=== PATIENT | female | born 1985 | race Caucasian/White ===

== ENCOUNTER 2018-01-28 19:03 | Emergency (ER) | payer MEDICAID ==
[2018-01-28] MEDS ORDERED: ASPI81TA94 PO (19:12)
[2018-01-28] MEDS ORDERED: PREN-127 PO (19:12)
--- NOTE | 2018-01-28 19:19 | ER Report ---
History and Physical Time Seen By MD: 19:19 Hx. of Stated Complaint: PT WAS SEEN AT THE EYE DOCTOR, LEAKING SPINAL FLUID BEHIND LEFT EYE. HAS AN APPOINTMENT WITH A SPECIALIST OR MON. CURRENTLY VERY DIZZY, NAUSEATED, CAN'T EAT ANYTHING HPI/ROS CHIEF COMPLAINT: Headache, dizziness HISTORY OF PRESENT ILLNESS: 32-year-old female patient presents to emergency room with complaint of headache and dizziness. Patient states that she has had a headache and are minimally for several weeks. She states that she was seen at a optometrists office. They did look at her and felt that she could very well have idiopathic intracranial hypertension. As a result of that they wanted her to follow-up with the [facility] for more definitive workup. They wanted her to that prior to seeing a neurologist. Patient states that she has been playing phone tag with the [facility] has not been ill make an appointment for sooner. She does have an appointment for or Monday this coming week. She states that the pain has gotten worse over the weekend. She denies any visual changes, she denies any loss of vision in her eye. She states that she has not been able keep anything down she's been nauseated. She denies having any fevers, chills. REVIEW OF SYSTEMS: Respiratory: No cough, no dyspnea. Cardiovascular: No chest pain, no palpitations. Gastrointestinal: As noted above Musculoskeletal: No back pain. Allergies: Coded Allergies: No Known Drug Allergies (Unverified , 01/28/18) Home Meds Active Scripts Nitrofurantoin Monohyd/M-Cryst (MACROBID 100 MG CAPSULE) 100 Mg Capsule, 100 MG PO BID, #14 CAPSULE Prov:ALMAZ COBURNP 01/28/18 Promethazine Hcl (PROMETHAZINE HCL) 25 Mg Tablet, 25 MG PO Q8H PRN for NAUSEA/VOMITING, #12 TAB Prov:ALMAZ COBURN 01/28/18 Hydrocodone Bit/Acetaminophen (HYDROCODON-ACETAMINOPHEN 5-325) 1 Each Tablet, 1 EACH PO Q4-6H PRN for PAIN, #12 TAB Prov:ALMAZ COBURNP 01/28/18 Reported Medications Aspirin (ASPIRIN) 81 Mg Tab.chew, 81 MG PO QDAY, TAB.CHEW 01/28/18 Vits W-Ca,Fe,Fa(<1MG) ( VITAMINS) 1 Each Tablet, 1 EACH PO DAILY, TAB 01/28/18 Past Medical/Surgical History Patient has a past medical history of migraines, hypertension, neck and shoulder problems, diabetes, marijuana, anxiety, depression. Patient has surgical history of tonsillectomy. Reviewed Nurses Notes: Yes Hx Substance Use Disorder: Yes (MARIJUANA) Hx Alcohol Use: No Constitutional Vital Sign - Last 24 Hours 01/28/18 19:08 Temp 97.4 Pulse 82 Resp 26 B/P (MAP) 130/118 Pulse Ox 98 O2 Delivery Room Air Physical Exam General Appearance: The patient is alert, has no immediate need for airway protection and no current signs of toxicity. Eyes: Pupils equal and round no injection. Extraocular movements intact. Respiratory: Chest is non tender, lungs are clear to auscultation. Cardiac: regular rate and rhythm Gastrointestinal: Abdomen is soft and non tender, no masses, bowel sounds normal. Musculoskeletal: Neck: Neck is supple and non tender. Extremities have full range of motion and are non tender. Skin: No rashes or lesions. DIFFERENTIAL DIAGNOSIS: After history and physical exam differential diagnosis was considered for headache including but not limited to subarachnoid hemorrhage, migraine headache, tension headache and infectious causes such as meningitis, pharyngitis and sinusitis. Included in the differential is idiopathic intracranial hypertension. Medical Decision Making Data Points Result Diagram: 01/28/18195101/28/181951 Laboratory Hematology Test 01/28/18 19:52 01/28/18 20:30 Red Blood Count 5.88 M/uL (4.17-5.56) Mean Corpuscular Volume 79.3 fL (80.0-96.0) Mean Corpuscular Hemoglobin 26.8 pg (26.0-33.0) Mean Corpuscular Hemoglobin Concent 33.8 g/dL (32.0-36.0) Red Cell Distribution Width 14.2 % (11.5-14.5) Mean Platelet Volume 7.1 fL (7.2-11.1) Neutrophils (%) (Auto) 71.2 % (39.4-72.5) Lymphocytes (%) (Auto) 21.1 % (17.6-49.6) Monocytes (%) (Auto) 6.4 % (4.1-12.4) Eosinophils (%) (Auto) 0.8 % (0.4-6.7) Basophils (%) (Auto) 0.5 % (0.3-1.4) Nucleated RBC Relative Count (auto) 0.0 /100WBC Neutrophils # (Auto) 8.7 K/uL (2.0-7.4) Lymphocytes # (Auto) 2.6 K/uL (1.3-3.6) Monocytes # (Auto) 0.8 K/uL (0.3-1.0) Eosinophils # (Auto) 0.1 K/uL (0.0-0.5) Basophils # (Auto) 0.1 K/uL (0.0-0.1) Nucleated RBC Absolute Count (auto) 0.00 K/uL Sodium Level 143 mmol/L (137-145) Potassium Level 3.6 mmol/L (3.5-5.0) Chloride Level 102 mmol/L (98-107) Carbon Dioxide Level 30 mmol/L (22-31) Blood Urea Nitrogen 13 mg/dl (7-18) Creatinine 0.70 mg/dl (0.52-1.04) Glomerular Filtration Rate Calc > 60.0 Random Glucose 110 mg/dl (75-110) Calcium Level 9.8 mg/dl (8.4-10.2) Total Bilirubin 0.5 mg/dl (0.2-1.3) Aspartate Amino Transf (AST/SGOT) 22 U/L (0-35) Alanine Aminotransferase (ALT/SGPT) 36 U/L (0-56) Alkaline Phosphatase 103 U/L (0-126) Total Protein 7.9 g/dl (6.3-8.2) Albumin 4.3 g/dl (3.5-5.0) Human Chorionic Gonadotropin, Qual Negative (NEGATIVE) Urine Color Yellow Urine Clarity Cloudy Urine pH 7.0 pH (4.8-9.5) Urine Specific Whitney 1.025 Urine Protein 30 mg/dL (NEGATIVE) Urine Glucose (UA) Negative mg/dL (NEGATIVE) Urine Ketones 80 mg/dL (NEGATIVE) Urine Blood Negative (NEGATIVE) Urine Nitrite Negative (NEGATIVE) Urine Bilirubin Negative (NEGATIVE) Urine Urobilinogen Negative mg/dL (0.2-1.9) Urine Leukocyte Esterase Small (NEGATIVE) Urine RBC 2 /HPF (0-2/HPF) Urine WBC 22 /HPF (0-5/HPF) Urine Squamous Epithelial Cells Many /LPF (</=FEW) Urine Transitional Epithelial Cells Few /LPF (NONE-FEW) Urine Bacteria Negative /HPF (NONE-FEW) Urine Hyaline Casts Many /LPF (NONE-FEW) Urine Mucus Few /HPF (NONE-FEW) Chemistry Test 01/28/18 19:52 01/28/18 20:30 White Blood Count 12.3 k/uL (4.5-11.0) Red Blood Count 5.88 M/uL (4.17-5.56) Hemoglobin 15.8 g/dL (12.0-16.0) Hematocrit 46.6 % (34.0-47.0) Mean Corpuscular Volume 79.3 fL (80.0-96.0) Mean Corpuscular Hemoglobin 26.8 pg (26.0-33.0) Mean Corpuscular Hemoglobin Concent 33.8 g/dL (32.0-36.0) Red Cell Distribution Width 14.2 % (11.5-14.5) Platelet Count 425 K/uL (150-450) Mean Platelet Volume 7.1 fL (7.2-11.1) Neutrophils (%) (Auto) 71.2 % (39.4-72.5) Lymphocytes (%) (Auto) 21.1 % (17.6-49.6) Monocytes (%) (Auto) 6.4 % (4.1-12.4) Eosinophils (%) (Auto) 0.8 % (0.4-6.7) Basophils (%) (Auto) 0.5 % (0.3-1.4) Nucleated RBC Relative Count (auto) 0.0 /100WBC Neutrophils # (Auto) 8.7 K/uL (2.0-7.4) Lymphocytes # (Auto) 2.6 K/uL (1.3-3.6) Monocytes # (Auto) 0.8 K/uL (0.3-1.0) Eosinophils # (Auto) 0.1 K/uL (0.0-0.5) Basophils # (Auto) 0.1 K/uL (0.0-0.1) Nucleated RBC Absolute Count (auto) 0.00 K/uL Glomerular Filtration Rate Calc > 60.0 Calcium Level 9.8 mg/dl (8.4-10.2) Total Bilirubin 0.5 mg/dl (0.2-1.3) Aspartate Amino Transf (AST/SGOT) 22 U/L (0-35) Alanine Aminotransferase (ALT/SGPT) 36 U/L (0-56) Alkaline Phosphatase 103 U/L (0-126) Total Protein 7.9 g/dl (6.3-8.2) Albumin 4.3 g/dl (3.5-5.0) Human Chorionic Gonadotropin, Qual Negative (NEGATIVE) Urine Color Yellow Urine Clarity Cloudy Urine pH 7.0 pH (4.8-9.5) Urine Specific Whitney 1.025 Urine Protein 30 mg/dL (NEGATIVE) Urine Glucose (UA) Negative mg/dL (NEGATIVE) Urine Ketones 80 mg/dL (NEGATIVE) Urine Blood Negative (NEGATIVE) Urine Nitrite Negative (NEGATIVE) Urine Bilirubin Negative (NEGATIVE) Urine Urobilinogen Negative mg/dL (0.2-1.9) Urine Leukocyte Esterase Small (NEGATIVE) Urine RBC 2 /HPF (0-2/HPF) Urine WBC 22 /HPF (0-5/HPF) Urine Squamous Epithelial Cells Many /LPF (</=FEW) Urine Transitional Epithelial Cells Few /LPF (NONE-FEW) Urine Bacteria Negative /HPF (NONE-FEW) Urine Hyaline Casts Many /LPF (NONE-FEW) Urine Mucus Few /HPF (NONE-FEW) Urinalysis Test 01/28/18 20:30 Urine Color Yellow Urine Clarity Cloudy Urine pH 7.0 pH (4.8-9.5) Urine Specific Whitney 1.025 Urine Protein 30 mg/dL (NEGATIVE) Urine Glucose (UA) Negative mg/dL (NEGATIVE) Urine Ketones 80 mg/dL (NEGATIVE) Urine Blood Negative (NEGATIVE) Urine Nitrite Negative (NEGATIVE) Urine Bilirubin Negative (NEGATIVE) Urine Urobilinogen Negative mg/dL (0.2-1.9) Urine Leukocyte Esterase Small (NEGATIVE) Urine RBC 2 /HPF (0-2/HPF) Urine WBC 22 /HPF (0-5/HPF) Urine Squamous Epithelial Cells Many /LPF (</=FEW) Urine Transitional Epithelial Cells Few /LPF (NONE-FEW) Urine Bacteria Negative /HPF (NONE-FEW) Urine Hyaline Casts Many /LPF (NONE-FEW) Urine Mucus Few /HPF (NONE-FEW) EKG/Imaging EKG Interpretation 12 lead EKG: Rhythm: normal sinus rhythm [place]: normal QRS: normal ST segments: normal Imaging CT Head without contrast Indication: Headache. Comparison: None available Technique: Axial CT images were obtained through the brain from the skull base to the vertex without administration of IV contrast. Reformatted coronal and sa gittal images were also obtained. One of the following dose optimization techniques was utilized in the performance of this exam: automated exposure control; adjustment of the mA and/or kV according to the patient's size; or use of an iterative reconstruction technique. Specific details can be referenced in the facility's radiology CT exam operational policy. Findings: No evidence of mass, mass effect, or midline shift. No acute intracranial hemorrhage or acute territorial infarction. No extra-axial fluid collection or hydrocephalus. No abnormal density. Benitez/white matter differentiation appears normal. Bony structures show no fractures or lesions. The visualized paranasal sinuses and mastoid air cells are clear. IMPRESSION: 1. Negative unenhanced CT of the head. Report Dictated By: Elijah Hinojosa at 01/28/2018 8:51 PM Report E-Signed By: Elijah Hinojosa at 01/28/2018 8:56 PM ED Course/Re-evaluation ED Course Patient was admitted on exam room, history and physical were obtained. Differential diagnoses were considered. On examination lungs are clear, heart is regular, abdomen is soft and nontender. Extraocular movements were intact. A CBC, CMP, urinalysis done. Patient had an elevated white count of 12,000, no left shift. CMP was unremarkable. The urinalysis did show moderate leukocyte esterase with 22 white blood cells per high power field. CT scan of the head was done which showed no acute findings. I discussed findings with patient and her family. I would patient does need to follow-up with the [facility] ([place], [place]) for a more appropriate look for possible idiopathic intracranial hypertension. In the meantime we will treat her with a limited supply of pain medication as well as nausea medication. She is return to the emergency room if condition worsens. She is to follow-up with her primary care provider in the next 2-3 weeks. I discussed the patient and her and they verbalized understanding and agreement with plan. Decision to Disposition Date: Jan 28, 2018 Decision to Disposition Time: 21:02 Depart Departure Latest Vital Signs Vital Signs Date Time Temp Pulse Resp B/P (MAP) Pulse Ox O2 Delivery O2 Flow Rate FiO2 9/30/18 19:08 97.4 82 26 130/118 98 Room Air Impression: Primary Impression: Headache Additional Impression: UTI (urinary tract infection) Condition: Improved Disposition: HOME OR SELF-CARE New Scripts Nitrofurantoin Monohyd/M-Cryst (MACROBID 100 MG CAPSULE) 100 Mg Capsule 100 MG PO BID, #14 CAPSULE Prov: ALMAZ COBURNP 01/28/18 Promethazine Hcl (PROMETHAZINE HCL) 25 Mg Tablet 25 MG PO Q8H PRN for NAUSEA/VOMITING, #12 TAB Prov: ALMAZ COBURN 01/28/18 Hydrocodone Bit/Acetaminophen (HYDROCODON-ACETAMINOPHEN 5-325) 1 Each Tablet 1 EACH PO Q4-6H PRN for PAIN, #12 TAB Prov: ALMAZ COBURN 01/28/18 Patient Instructions: Urinary Tract Infection in Women (ED) Additional Instructions: Increase fluid intake. Get plenty of rest. Follow up with your software testing specialist ([facility]) this next week. Limit activity by pain. Return to the ER if condition worsens. Follow up with your primary care provider in the next 1-2 weeks. Problem Qualifiers Primary Impression: Headache Headache type: unspecified Headache chronicity pattern: acute headache Intractability: not intractable Qualified Codes: R51 - Headache Additional Impression: UTI (urinary tract infection) Urinary tract infection type: acute cystitis Hematuria presence: without hematuria Qualified Codes: N30.00 - Acute cystitis without hematuria ALMAZ COBURN Jan 28, 2018 19:19
[2018-01-28] MEDS ORDERED: NS(*) 0.9% 1000 ML BAG 1,000 ML IV ONE (19:27)
[2018-01-28] MEDS ORDERED: ONDANSETRON 4 MG/2 ML VIAL IVP ONE ×2 (19:30→21:00)
[2018-01-28] MEDS ORDERED: MORPHINE 4 MG/ML SDV IVP ONE (19:30)
[2018-01-28 20:03] LABS: PLATELET COUNT, AUTOMATED 425 K/uL (150-450)
--- NOTE | 2018-01-28 20:59 | RADIOLOGY IMAGING REPORT ---
FACILITY: [facility] [place] PATIENT NAME: Agnes Carballo : 1985 MR: [id number] V: [id number] EXAM DATE: ORDERING PHYSICIAN: ALMAZ COBURN TECHNOLOGIST: Location: [facility] Patient: Agnes Carballo : 1985 Visit/Account:[id number] Date of Sevice: 01/28/2018 CT Head without contrast Indication: Headache. Comparison: None available Technique: Axial CT images were obtained through the brain from the skull base to the vertex without administration of IV contrast. Reformatted coronal and sagittal images were also obtained. One of the following dose optimization techniques was utilized in the performance of this exam: autom ated exposure control; adjustment of the mA and/or kV according to the patient's size; or use of an i terative reconstruction technique. Specific details can be referenced in the facility's radiology CT exam operational policy. Findings: No evidence of mass, mass effect, or midline shift. No acute intracranial hemorrhage or acute territorial infarction. No extra-axial fluid collection or hydrocephalus. No abnormal density. Benitez/white matter differentiat ion appears normal. Bony structures show no fractures or lesions. The visualized paranasal sinuses and mastoid air cells are clear. IMPRESSION: 1. Negative unenhanced CT of the head. Report Dictated By: Elijah Hinojosa at 01/28/2018 8:51 PM Report E-Signed By: Elijah Hinojosa at 01/28/2018 8:56 PM WSN:[id number]
[2018-01-28] MEDS ORDERED: HYDR-385 PO (21:03)
[2018-01-28] MEDS ORDERED: PROM-110 PO (21:03)
[2018-01-28] MEDS ORDERED: NITR-105 PO (21:05)
[2018-01-28] MEDS ORDERED: PROMETHAZINE HCL 25 MG TAB TH 2 TAB/BOTTLE PO ONE (21:10)
[2018-01-28] MEDS ORDERED: ACET/HYDROC 5/325MG TH ER ONLY 2 TAB/BOTTLE PO ONE (21:10)
[2018-01-28 21:16] VITALS: BP 103/77
--- NOTE | 2018-01-28 21:30 | EKG ---
FACILITY: [facility] [place] PATIENT NAME: SOFYA FINK : [id number] MR: [id number] V: [id number] EXAM DATE: ORDERING PHYSICIAN: ALMAZ COBURN TECHNOLOGIST: MAINOR Test Reason : DIZZINESS Blood Pressure : / mmHG Vent. Rate : 068 BPM Atrial Rate : 068 BPM P-R Int : 158 ms QRS Dur : 084 ms QT Int : 392 ms P-R-T Axes : 025 031 041 degrees QTc Int : 416 ms Normal sinus rhythm Low voltage QRS No ST-T abnormalities Confirmed by CHANDNI MORAN ([id number]) on 01/29/2018 2:50:48 PM Referred By: ALMAZ Confirmed By:CHANDNI MORAN
== END 2018-01-28 21:10 | disposition home or self-care (01) ==
LOC: ER 19:19
DX: R51 Headache (principal); N30.00 Acute cystitis without hematuria
CPT/HCPCS: 70450; 81001; 84703; 85025; 87077; 87088; 87186; 93005; 96361; 96374; 96375; 96376; 99284; J2270; J2405; J7030; 82040; 82247; 82310; 82374; 82435; 82565; 82947; 84075; 84132; 84155; 84295; 84450; 84460; 84520

== ENCOUNTER 2018-02-03 11:14 | Emergency (ER) | payer MEDICAID ==
[~2018-02-03 11:14] MED LIST: ASPI81TA94 PO; HYDR-385 PO; NITR-105 PO; PREN-127 PO; PROM-110 PO
--- NOTE | 2018-02-03 11:21 | ER Report ---
History and Physical Time Seen By MD: 11:18 Hx. of Stated Complaint: PATIENT REPORTS THAT SHE HAS EDEMA BEHIND HER LEFT EYE. SHE IS BEING SEEN BY [facility] FOR THIS. TODAY SHE REPORTS INCREASED SWELLING AND PAIN. HPI/ROS CHIEF COMPLAINT: Migraine and eye pressure HISTORY OF PRESENT ILLNESS: This is a 32-year-old female who presents to the emergency department for a migraine type headache with pressure behind her left eye. The patient was seen and evaluated here last month for a migraine headache and dizziness, had a CT scan which was negative. Patient has since then followed up with the eye center of [facility] for follow-up with the left eye pressure. Patient states that there are evaluating her for papilledema secondary to her diabetes and hypertension. Patient states that she's had this increased pressure behind her left eye for some time progressively getting worse they were considering an MRI. Patient states that today she woke up with blurred vision in the left eye with increased pressure behind her left eye as well. She has na usea, no vomiting. No diarrhea. No chest pain or shortness breath. No fevers. REVIEW OF SYSTEMS: Constitutional: No fever, no chills. Eyes: As above. ENT: No sore throat. Cardiovascular: No chest pain, no palpitations. Respiratory: No cough, no shortness of breath. Gastrointestinal: No abdominal pain, no vomiting. Genitourinary: No hematuria. Musculoskeletal: No back pain. Skin: No rashes. Neurological: As above. Allergies: Coded Allergies: No Known Drug Allergies (Unverified , 01/28/18) Home Meds Active Scripts Nitrofurantoin Monohyd/M-Cryst (MACROBID 100 MG CAPSULE) 100 Mg Capsule, 100 MG PO BID, #14 CAPSULE Prov:ALMAZ COBURNP 01/28/18 Promethazine Hcl (PROMETHAZINE HCL) 25 Mg Tablet, 25 MG PO Q8H PRN for NAUSEA/VOMITING, #12 TAB Prov:ALMAZ COBURN 01/28/18 Hydrocodone Bit/Acetaminophen (HYDROCODON-ACETAMINOPHEN 5-325) 1 Each Tablet, 1 EACH PO Q4-6H PRN for PAIN, #12 TAB Prov:ALMAZ COBURN [facility] 01/28/18 Reported Medications Aspirin (ASPIRIN) 81 Mg Tab.chew, 81 MG PO QDAY, TAB.CHEW 01/28/18 Vits W-Ca,Fe,Fa(<1MG) ( VITAMINS) 1 Each Tablet, 1 EACH PO DAILY, TAB 01/28/18 Past Medical/Surgical History The patient has a past medical and surgical history of migraines, hypertension, uncontrolled, neck and shoulder discomfort, is supposed to wear glasses, uncontrolled diabetes, uses marijuana, anxiety, depression, tonsillectomy. Reviewed Nurses Notes: Yes Hx Substance Use Disorder: Yes (MARIJUANA) Hx Alcohol Use: No Constitutional Vital Sign - Last 24 Hours 02/03/18 02/03/18 02/03/18 02/03/18 11:17 14:48 14:50 15:41 Pulse 76 73 76 Resp 20 B/P (MAP) 128/93 118/81 (93) 126/97 (107) Pulse Ox 96 96 94 O2 Delivery Room Air Physical Exam General Appearance: The patient is alert, has no immediate need for airway protection and no signs of toxicity. Eyes: Pupils equal and round no pallor or injection. EOMs intact, no nystagmus. OS 20/40, OD 20/50, OU 20/40. Pressure in both eyes 12.2. Unable to visualize the fundus during exam, patient not tolerating. ENT, Mouth: Mucous membranes are moist. Respiratory: There are no retractions, lungs are clear to auscultation. Cardiovascular: Regular rate and rhythm, distant, no murmurs, clicks or rubs. Gastrointestinal: Abdomen is soft and non tender, no masses, bowel sounds normal. Neurological: Alert and oriented 4. Moving all extremities. Following all commands. No focal neuro deficits. Skin: Warm and dry, no rashes. Musculoskeletal: Neck is supple non tender. Extremities are nontender, nonswollen and have full range of motion. DIFFERENTIAL DIAGNOSIS: After history and physical exam differential diagnosis was considered for MS, tumor, diabetic papillitis, papilledema and atypical migraine. Medical Decision Making Data Points Laboratory Hematology Test 02/03/18 13:05 Human Chorionic Gonadotropin, Qual Negative (NEGATIVE) Chemistry Test 02/03/18 13:05 Human Chorionic Gonadotropin, Qual Negative (NEGATIVE) EKG/Imaging Imaging EXAMINATION: MRI Brain without intravenous contrast MRI Orbits without intravenous contrast MRI Orbits with intravenous contrast HISTORY: Left eye pressure. Papilledema. COMPARISON: None available. TECHNIQUE: Multisequence, multiplanar brain MRI without IV contrast. Multisequence, multiplane orbits MRI without and with IV contrast. CONTRAST: 15 mL of IV MultiHance FINDINGS: RIGHT ORBIT Globe: Negative. Optic nerve / Intraconal space: Negative. Extra-ocular muscles / Extraconal space: Negative. Lacrimal gland: Negative. Subcutaneous tissues: Negative. LEFT ORBIT: Globe: Negative. Optic nerve / Intraconal space: Negative. Extra-ocular muscles / Extraconal space: Negative. Lacrimal gland: Negative. Subcutaneous tissues: Negative. BRAIN: Brain volume: Normal. Sagittal midline structures: Negative. Ventricles: Negative. Acute ischemic changes: None. Hemorrhage: None. Masses / edema: None. Enhancement: Negative. Benitez-white: Negative. White matter: Mild patchy periventricular and subcortical FLAIR hyperintensity. Vessels: Negative. Extra-axial: Negative. Calvarium / scalp: Negative. Skull base: Negative. Visualized sinuses / orbits: Negative. Visualized upper neck: Negative. IMPRESSION: 1. Mild patchy FLAIR hyperintensity in the periventricular and subcortical white matter. The differential diagnosis includes migraine syndromes, demyelinating disease, sequela of prior infection/inflammation/trauma, and chronic microvascular ischemia. 2. Otherwise normal noncontrast brain MRI. 3. Normal MRI of the orbits without and with IV contrast. Report Dictated By: Ulisses Cavazos MD at 02/03/2018 2:52 PM Report E-Signed By: Ulisses Cavazos MD at 02/03/2018 3:00 PM [id number] EXAMINATION: MRI Brain without intravenous contrast MRI Orbits without intravenous contrast MRI Orbits with intravenous contrast HISTORY: Left eye pressure. Papilledema. COMPARISON: None available. TECHNIQUE: Multisequence, multiplanar brain MRI without IV contrast. Multisequence, multiplane orbits MRI without and with IV contrast. CONTRAST: 15 mL of IV MultiHance FINDINGS: RIGHT ORBIT Globe: Negative. Optic nerve / Intraconal space: Negative. Extra-ocular muscles / Extraconal space: Negative. Lacrimal gland: Negative. Subcutaneous tissues: Negative. LEFT ORBIT: Globe: Negative. Optic nerve / Intraconal space: Negative. Extra-ocular muscles / Extraconal space: Negative. Lacrimal gland: Negative. Subcutaneous tissues: Negative. BRAIN: Brain volume: Normal. Sagittal midline structures: Negative. Ventricles: Negative. Acute ischemic changes: None. Hemorrhage: None. Masses / edema: None. Enhancement: Negative. Benitez-white: Negative. White matter: Mild patchy periventricular and subcortical FLAIR hyperintensity. Vessels: Negative. Extra-axial: Negative. Calvarium / scalp: Negative. Skull base: Negative. Visualized sinuses / orbits: Negative. Visualized upper neck: Negative. IMPRESSION: 1. Mild patchy FLAIR hyperintensity in the periventricular and subcortical white matter. The differential diagnosis includes migraine syndromes, demyelinating disease, sequela of prior infection/inflammation/trauma, and chronic microvascular ischemia. 2. Otherwise normal noncontrast brain MRI. 3. Normal MRI of the orbits without and with IV contrast. Report Dictated By: Ulisses Cavazos MD at 02/03/2018 2:52 PM Report E-Signed By: Ulisses Cavazos MD at 02/03/2018 3:00 PM [id number] ED Course/Re-evaluation ED Course The patient was admitted to room. After physical were obtained. Diagnoses were considered. Patient was having some nausea was given 4 mg ODT Zofran which did not seem to help, patient was given 12.5 mg IM Phenergan which did eliminate the nausea. I did speak with Dr. Vyas at the [facility] as noted below, he recommended proceeding with the MRI of the brain and orbits. MRI of the brain and orbits showing Mild patchy FLAIR hyperintensity in the periventricular and subcortical white matter otherwise no acute findings. I did call speak with [place] [facility], Dr. Morales to review the MRI results. He suggested following up with Dr. Almanza were Dr. Hodges for the headaches and the MRI results. I did review these results with the patient, I did recommend the patient follows up with ophthalmology this next week as well as getting in touch with neurology for follow-up. The patient expressed understanding and was discharged home. Patient had no other depressions or concerns or complaints at the time of discharge. 02/03/2018 12:26:16 pm I did speak with the on-call property supervisor from the [facility], Dr. Kennedy Vyas, we discussed the patient's case, he did suggest moving forward with MRI of the brain and orbits. I did review this with the patient, she is in agreement with this . Decision to Disposition Date: Feb 03, 2018 Decision to Disposition Time: 15:38 Depart Departure Latest Vital Signs Vital Signs Date Time Temp Pulse Resp B/P (MAP) Pulse Ox O2 Delivery O2 Flow Rate FiO2 02/03/18 15:41 126/97 (107) 02/03/18 14:50 76 94 02/03/18 11:17 20 Room Air Impression: Primary Impression: Headache Additional Impression: Blurred vision, left eye Condition: Improved Disposition: HOME OR SELF-CARE Referrals: AILEEN BARRETT MD, CELINA F MD Patient Instructions: Acute Headache (ED), Blurred Vision (ED), Migraine Headache (ED) Additional Instructions: Follow up with the [facility] next week, let them know you had and MRI, they may may need to request a copy of the results from medical rec ords. Follow up with [facility], either Dr. Trujillo or Dr. Barrett in the next couple of weeks for the headaches, they too may need a copy of the MRI results. Be sure to follow up with your Primary care provider. Please work on taking your metformin regularly and consistently. Talk to your PCP about hypertension too. Drink plenty of water. Get plenty of rest. Return to the ED for any other concerns or worsening symptoms. Problem Qualifiers Primary Impression: Headache Headache type: unspecified Headache chronicity pattern: unspecified pattern Intractability: not intractable Qualified Codes: R51 - Headache ULISSES RAMSEY POST SPLITTER-BC Feb 03, 2018 11:21
[2018-02-03] MEDS ORDERED: PROPARACAINE 0.5% OP 15ML BTL OU ONE (11:40)
[2018-02-03] MEDS ORDERED: ONDANSETRON 4 MG ODT TABDP SL ONE (12:00)
[2018-02-03] MEDS ORDERED: PROMETHAZINE 25 MG/ML 1 ML AMP IM ONE (12:20)
[2018-02-03] MEDS ORDERED: GADOBENATE 529MG/1ML 15ML VIAL IVP ONE (14:18)
--- NOTE | 2018-02-03 15:04 | RADIOLOGY IMAGING REPORT ---
FACILITY: [facility] PATIENT NAME: Agnes Carballo : 1985 MR: [id number] V: [id number] EXAM DATE: ORDERING PHYSICIAN: ESCOBAR RAMSEY TECHNOLOGIST: Location: [facility] Patient: Agnes Carballo : 1985 Visit/Account:[id number] Date of Sevice: 02/03/2018 EXAMINATION: MRI Brain without intravenous contrast MRI Orbits without intravenous contrast MRI Orbits with intravenous contrast HISTORY: Left eye pressure. Papilledema. COMPARISON: None available. TECHNIQUE: Multisequence, multiplanar brain MRI without IV contrast. Multisequence, multiplane orbits MRI without and with IV contrast. CONTRAST: 15 mL of IV MultiHance FINDINGS: RIGHT ORBIT Globe: Negative. Optic nerve / Intraconal space: Negative. Extra-ocular muscles / Extraconal space: Negative. Lacrimal gland: Negative. Subcutaneous tissues: Negative. LEFT ORBIT: Globe: Negative. Optic nerve / Intraconal space: Negative. Extra-ocular muscles / Extraconal space: Negative. Lacrimal gland: Negative. Subcutaneous tissues: Negative. BRAIN: Brain volume: Normal. Sagittal midline structures: Negative. Ventricles: Negative. Acute ischemic changes: None. Hemorrhage: None. Masses / edema: None. Enhancement: Negative. Benitez-white: Negative. White matter: Mild patchy periventricular and subcortical FLAIR hyperintensity. Vessels: Negative. Extra-axial: Negative. Calvarium / scalp: Negative. Skull base: Negative. Visualized sinuses / orbits: Negative. Visualized upper neck: Negative. IMPRESSION: 1. Mild patchy FLAIR hyperintensity in the periventricular and subcortical white matter. The differen tial diagnosis includes migraine syndromes, demyelinating disease, sequela of prior infection/inflamm ation/trauma, and chronic microvascular ischemia. 2. Otherwise normal noncontrast brain MRI. 3. Normal MRI of the orbits without and with IV contrast. Report Dictated By: Escobar Cavazos MD at 02/03/2018 2:52 PM Report E-Signed By: Escobar Cavazos MD at 02/03/2018 3:00 PM [id number]
--- NOTE | 2018-02-03 15:05 | RADIOLOGY IMAGING REPORT ---
FACILITY: [facility] PATIENT NAME: Agnes Carballo : 1985 MR: [id number] V: [id number] EXAM DATE: ORDERING PHYSICIAN: ESCOBAR RAMSEY TECHNOLOGIST: Location: [facility] Patient: Agnes Carballo : 1985 Visit/Account:[id number] Date of Sevice: 02/03/2018 EXAMINATION: MRI Brain without intravenous contrast MRI Orbits without intravenous contrast MRI Orbits with intravenous contrast HISTORY: Left eye pressure. Papilledema. COMPARISON: None available. TECHNIQUE: Multisequence, multiplanar brain MRI without IV contrast. Multisequence, multiplane orbits MRI without and with IV contrast. CONTRAST: 15 mL of IV MultiHance FINDINGS: RIGHT ORBIT Globe: Negative. Optic nerve / Intraconal space: Negative. Extra-ocular muscles / Extraconal space: Negative. Lacrimal gland: Negative. Subcutaneous tissues: Negative. LEFT ORBIT: Globe: Negative. Optic nerve / Intraconal space: Negative. Extra-ocular muscles / Extraconal space: Negative. Lacrimal gland: Negative. Subcutaneous tissues: Negative. BRAIN: Brain volume: Normal. Sagittal midline structures: Negative. Ventricles: Negative. Acute ischemic changes: None. Hemorrhage: None. Masses / edema: None. Enhancement: Negative. Benitez-white: Negative. White matter: Mild patchy periventricular and subcortical FLAIR hyperintensity. Vessels: Negative. Extra-axial: Negative. Calvarium / scalp: Negative. Skull base: Negative. Visualized sinuses / orbits: Negative. Visualized upper neck: Negative. IMPRESSION: 1. Mild patchy FLAIR hyperintensity in the periventricular and subcortical white matter. The differen tial diagnosis includes migraine syndromes, demyelinating disease, sequela of prior infection/inflamm ation/trauma, and chronic microvascular ischemia. 2. Otherwise normal noncontrast brain MRI. 3. Normal MRI of the orbits without and with IV contrast. Report Dictated By: Escobar Cavazos MD at 02/03/2018 2:52 PM Report E-Signed By: Escobar Cavazos MD at 02/03/2018 3:00 PM [id number]
[2018-02-03 15:41] VITALS: BP 126/97
== END 2018-02-03 15:54 | disposition home or self-care (01) ==
LOC: ER 11:32
DX: R51 Headache (principal); H53.8 Other visual disturbances
CPT/HCPCS: 36415; 70543; 70551; 84703; 96372; 99284; A9577; J2550; S0119

== ENCOUNTER 2018-03-07 12:28 | Emergency (ER) | payer MEDICAID ==
[2018-03-07 12:32] VITALS: BP 153/102
--- NOTE | 2018-03-07 12:32 | ER Report ---
History and Physical Time Seen By MD: 12:31 HPI/ROS CHIEF COMPLAINT: Right distal lower extremity pain HISTORY OF PRESENT ILLNESS: Patient is a 32-year-old female here with complaints of right lower extremity distal pain which started yesterday evening reportedly coming in waves of intense pain located primarily in the area of the Achilles tendon, exacerbated by dorsiflexion of the foot. Patient denies paresthesias, discoloration of the foot, recent trauma or bruising. She does report some swelling in the right ankle. Patient denies fevers, chest pain, shortness breath prior history of clotting or DVTs. REVIEW OF SYSTEMS: Constitutional: No fever, no chills. Musculoskeletal: + right ankle and achilles tendon pain Skin: No rashes. Neurological: No focal neuro deficits Allergies: Coded Allergies: No Known Drug Allergies (Unverified , 01/28/18) Home Meds Active Scripts Tramadol Hcl (TRAMADOL HCL) 50 Mg Tablet, 50 MG PO Q6H PRN for PAIN, #6 TAB 0 Refills Prov:MONICA LEDEZMA DO 03/07/18 Cyclobenzaprine Hcl (CYCLOBENZAPRINE HCL) 10 Mg Tablet, 10 MG PO Q8H PRN for MUSCLE SPASMS, #20 TAB 0 Refills Prov:MONICA LEDEZMA DO 03/07/18 Reported Medications Fluoxetine Hcl (PROZAC) 20 Mg Capsule, 20 MG PO QDAY, CAPSULE 03/07/18 Aspirin (ASPIRIN) 81 Mg Tab.chew, 81 MG PO QDAY, TAB.CHEW 01/28/18 Vits W-Ca,Fe,Fa(<1MG) ( VITAMINS) 1 Each Tablet, 1 EACH PO DAILY, TAB 01/28/18 Discontinued Scripts Nitrofurantoin Monohyd/M-Cryst (MACROBID 100 MG CAPSULE) 100 Mg Capsule, 100 MG PO BID, #14 CAPSULE Prov:ALMAZ COBURN 01/28/18 Promethazine Hcl (PROMETHAZINE HCL) 25 Mg Tablet, 25 MG PO Q8H PRN for NAUSEA/VOMITING, #12 TAB Prov:ALMAZ COBURN 01/28/18 Hydrocodone Bit/Acetaminophen (HYDROCODON-ACETAMINOPHEN 5-325) 1 Each Tablet, 1 EACH PO Q4-6H PRN for PAIN, #12 TAB Prov:ALMAZ COBURN 01/28/18 Hx Substance Use Disorder: Yes (MARIJUANA) Hx Alcohol Use: No Constitutional Vital Sign - Last 24 Hours 03/07/18 12:32 Temp 98.2 Pulse 94 Resp 20 B/P (MAP) 153/102 Pulse Ox 96 O2 Delivery Room Air Physical Exam General Appearance: The patient is alert, has no immediate need for airway protection and no signs of toxicity. NAD Neurological: No focal neuro deficits Skin: Warm and dry, no rashes. Musculoskeletal: + right ankle mild edema, tenderness on palpation of achilles tendon and with dorsiflexion of the foot DIFFERENTIAL DIAGNOSIS: After history and physical exam differential diagnosis was considered for sprain, strain, fracture, DVT, tendonitis, muscle spasm Medical Decision Making Data Points Laboratory Hematology Test 03/07/18 13:00 D-Dimer Quantitative (PE/DVT) 0.35 ug/ml (0-0.50) Chemistry Test 03/07/18 13:00 D-Dimer Quantitative (PE/DVT) 0.35 ug/ml (0-0.50) Coagulation Test 03/07/18 13:00 D-Dimer Quantitative (PE/DVT) 0.35 ug/ml ED Course/Re-evaluation ED Course Patient is a 32-year-old female here with distal right lower extremity calf and Achilles tendon pain worse with dorsiflexion. Physical exam was remarkable for tenderness on palpation and dorsiflexion of the ankle however no bony deformity or ecchymosis was noted. Capillary refill was less than 2 seconds, patient had intact sensation. Patient denied trauma. Decision was made to complete d-dimer to rule out DVT or clots. Patient was advised to continue taking NSAIDs for inf lammatory pain relief, scripts were given for tramadol for breakthrough pain and Flexeril for possible muscle spasm. Patient was advised to follow-up with her PCP in the next couple days for follow-up care and evaluation. Decision to Disposition Date: Mar 07, 2018 Decision to Disposition Time: 14:13 Depart Departure Latest Vital Signs Vital Signs Date Time Temp Pulse Resp B/P (MAP) Pulse Ox O2 Delivery O2 Flow Rate FiO2 03/07/18 12:32 98.2 94 20 153/102 96 Room Air Impression: Primary Impression: Extremity pain Condition: Improved Disposition: HOME OR SELF-CARE New Scripts Tramadol Hcl (TRAMADOL HCL) 50 Mg Tablet 50 MG PO Q6H PRN for PAIN, #6 TAB 0 Refills Prov: MONICA LEDEZMA DO 03/07/18 Cyclobenzaprine Hcl (CYCLOBENZAPRINE HCL) 10 Mg Tablet 10 MG PO Q8H PRN for MUSCLE SPASMS, #20 TAB 0 Refills Prov: DARIENMONICA S DO 03/07/18 Patient Instructions: Leg Pain (ED) Additional Instructions: Please continue to take naproxen 500 mg twice daily or ibuprofen 800 mg every 6- 8 hours as needed for her primary pain control. You may take 1 tramadol every 6 hours as needed for breakthrough pain. You may take 1 tablet of Flexeril every 4-6 hours as needed for muscle spasm. Please do not drive or drink alcohol while on these medications as they may be sedating. Please follow-up with your family doctor in the next 2 days. Please return promptly to the emergency department if you develop worsening pain, numbness, fevers, increased swelling. MONICA LEDEZMA DO Mar 07, 2018 12:32
[2018-03-07] MEDS ORDERED: FLUO-202 PO (12:37)
[2018-03-07] MEDS ORDERED: KETOROLAC 60 MG/2 ML VIAL IM ONE (12:50)
[2018-03-07] MEDS ORDERED: TRAM-420 PO (14:08)
[2018-03-07] MEDS ORDERED: CYCL10TA29 PO (14:08)
== END 2018-03-07 14:18 | disposition home or self-care (01) ==
LOC: ER 12:38
DX: M79.604 Pain in right leg (principal)
CPT/HCPCS: 36415; 85379; 96372; 99283; J1885

== ENCOUNTER 2018-04-16 08:07 | Emergency (ER) | payer MEDICAID ==
[~2018-04-16 08:07] MED LIST changes: +CYCL10TA29 PO; +FLUO-202 PO; +TRAM-420 PO
--- NOTE | 2018-04-16 08:40 | ER Report ---
History and Physical Time Seen By MD: 08:15 Hx. of Stated Complaint: PATIENT BELIEVES SHE IS HAVING A MISCARRIGE. SHE REPORTS THAT SHE COULD BE AROUND 4-5 WEEKS . HPI/ROS 32-year-old otherwise healthy female reports irregular menses, currently with vaginal bleeding, and concerned that she is and having a miscarriage. She denies excessive bleeding or pain. No previous ectopic. No IUD. No vaginal discharge. No dysuria Allergies: Coded Allergies: No Known Drug Allergies (Unverified , 01/28/18) Home Meds Active Scripts Tramadol Hcl (TRAMADOL HCL) 50 Mg Tablet, 50 MG PO Q6H PRN for PAIN, #6 TAB 0 Refills Prov:LEDEZMA,MONICA S DO 03/07/18 Cyclobenzaprine Hcl (CYCLOBENZAPRINE HCL) 10 Mg Tablet, 10 MG PO Q8H PRN for MUSCLE SPASMS, #20 TAB 0 Refills Prov:MONICA LEDEZMA S DO 03/07/18 Reported Medications Fluoxetine Hcl (PROZAC) 20 Mg Capsule, 20 MG PO QDAY, CAPSULE 03/07/18 Aspirin (ASPIRIN) 81 Mg Tab.chew, 81 MG PO QDAY, TAB.CHEW 01/28/18 Vits W-Ca,Fe,Fa(<1MG) ( VITAMINS) 1 Each Tablet, 1 EACH PO DAILY, TAB 01/28/18 Reviewed Nurses Notes: Yes Old Medical Records Reviewed: Yes Hx Substance Use Disorder: Yes (MARIJUANA) Hx Alcohol Use: No Constitutional Physical Exam General Appearance: The patient is alert, has no immediate need for airway protection and no current signs of toxicity. [ ] Eyes: Pupils equal and round no injection. Respiratory: Chest is non tender, lungs are clear to auscultation. Cardiac: regular rate and rhythm Gastrointestinal: Abdomen is soft and non tender, no masses, bowel sounds normal. : Small amount of blood in the vaginal vault, cervix closed, no vaginal discharge or adnexal tenderness DIFFERENTIAL DIAGNOSIS: After history and physical exam differential diagnosis was considered for , miscarriage, ectopic , DUB, menses Medical Decision Making Data Points Laboratory Hematology Test 04/16/18 08:28 Red Blood Count 5.59 M/uL (4.17-5.56) Mean Corpuscular Volume 81.3 fL (80.0-96.0) Mean Corpuscular Hemoglobin 27.1 pg (26.0-33.0) Mean Corpuscular Hemoglobin Concent 33.3 g/dL (32.0-36.0) Red Cell Distribution Width 13.6 % (11.5-14.5) Mean Platelet Volume 6.7 fL (7.2-11.1) Neutrophils (%) (Auto) 58.7 % (39.4-72.5) Lymphocytes (%) (Auto) 31.1 % (17.6-49.6) Monocytes (%) (Auto) 5.8 % (4.1-12.4) Eosinophils (%) (Auto) 3.9 % (0.4-6.7) Basophils (%) (Auto) 0.5 % (0.3-1.4) Nucleated RBC Relative Count (auto) 0.1 /100WBC Neutrophils # (Auto) 5.1 K/uL (2.0-7.4) Lymphocytes # (Auto) 2.7 K/uL (1.3-3.6) Monocytes # (Auto) 0.5 K/uL (0.3-1.0) Eosinophils # (Auto) 0.3 K/uL (0.0-0.5) Basophils # (Auto) 0.0 K/uL (0.0-0.1) Nucleated RBC Absolute Count (auto) 0.01 K/uL Sodium Level 141 mmol/L (137-145) Potassium Level 3.9 mmol/L (3.5-5.0) Chloride Level 104 mmol/L (98-107) Carbon Dioxide Level 26 mmol/L (22-31) Blood Urea Nitrogen 21 mg/dl (7-18) Creatinine 0.80 mg/dl (0.52-1.04) Glomerular Filtration Rate Calc > 60.0 Random Glucose 93 mg/dl (75-110) Calcium Level 9.5 mg/dl (8.4-10.2) Total Bilirubin 0.3 mg/dl (0.2-1.3) Aspartate Amino Transf (AST/SGOT) 27 U/L (0-35) Alanine Aminotransferase (ALT/SGPT) 33 U/L (0-56) Alkaline Phosphatase 103 U/L (0-126) Total Protein 8.2 g/dl (6.3-8.2) Albumin 4.4 g/dl (3.5-5.0) Human Chorionic Gonadotropin, Quant < 2 mIU/ml Chemistry Test 04/16/18 08:28 White Blood Count 8.6 k/uL (4.5-11.0) Red Blood Count 5.59 M/uL (4.17-5.56) Hemoglobin 15.1 g/dL (12.0-16.0) Hematocrit 45.4 % (34.0-47.0) Mean Corpuscular Volume 81.3 fL (80.0-96.0) Mean Corpuscular Hemoglobin 27.1 pg (26.0-33.0) Mean Corpuscular Hemoglobin Concent 33.3 g/dL (32.0-36.0) Red Cell Distribution Width 13.6 % (11.5-14.5) Platelet Count 407 K/uL (150-450) Mean Platelet Volume 6.7 fL (7.2-11.1) Neutrophils (%) (Auto) 58.7 % (39.4-72.5) Lymphocytes (%) (Auto) 31.1 % (17.6-49.6) Monocytes (%) (Auto) 5.8 % (4.1-12.4) Eosinophils (%) (Auto) 3.9 % (0.4-6.7) Basophils (%) (Auto) 0.5 % (0.3-1.4) Nucleated RBC Relative Count (auto) 0.1 /100WBC Neutrophils # (Auto) 5.1 K/uL (2.0-7.4) Lymphocytes # (Auto) 2.7 K/uL (1.3-3.6) Monocytes # (Auto) 0.5 K/uL (0.3-1.0) Eosinophils # (Auto) 0.3 K/uL (0.0-0.5) Basophils # (Auto) 0.0 K/uL (0.0-0.1) Nucleated RBC Absolute Count (auto) 0.01 K/uL Glomerular Filtration Rate Calc > 60.0 Calcium Level 9.5 mg/dl (8.4-10.2) Total Bilirubin 0.3 mg/dl (0.2-1.3) Aspartate Amino Transf (AST/SGOT) 27 U/L (0-35) Alanine Aminotransferase (ALT/SGPT) 33 U/L (0-56) Alkaline Phosphatase 103 U/L (0-126) Total Protein 8.2 g/dl (6.3-8.2) Albumin 4.4 g/dl (3.5-5.0) Human Chorionic Gonadotropin, Quant < 2 mIU/ml ED Course/Re-evaluation ED Course HCG negative, pelvic exam normal, benign abdominal exam, normal vitals. Exam consistent with menses. Follow-up with a [facility] physician regarding abnormal potential periods. Decision to Disposition Date: May 01, 2018 Decision to Disposition Time: 14:04 Depart Departure Latest Vital Signs Impression: Primary Impression: Menses, irregular Condition: Improved Disposition: HOME OR SELF-CARE Referrals: LEE PIÑA Patient Instructions: Menstruation (GEN) HAVEN YBARRA MD Apr 16, 2018 08:40
[2018-04-16 08:44] LABS: PLATELET COUNT, AUTOMATED 407 K/uL (150-450)
[2018-04-16 09:30] VITALS: BP 104/68
== END 2018-04-16 10:20 | disposition home or self-care (01) ==
LOC: ER 08:45
DX: N92.6 Irregular menstruation, unspecified (principal)
CPT/HCPCS: 82040; 82247; 82310; 82374; 82435; 82565; 82947; 84075; 84132; 84155; 84295; 84450; 84460; 84520; 84702; 85025; 99282

== ENCOUNTER 2018-07-08 17:09 | Emergency (ER) | payer MEDICAID ==
--- NOTE | 2018-07-08 16:59 | ER Report ---
History and Physical Time Seen By MD: 16:59 (HAVEN YBARRA MD) HPI/ROS 32 y/o female with a history of idiopathic intracranial hypertension and has a neurologist in [place]. Had an LP last week but still with [facility]. Had 2 ED visits after LP, but still with [facility]. No fever, no meningismus, not worse [facility] of life. Typical [facility]. Remainder of the 14 system rev: Yes (HAVEN YBARRA MD) Allergies: Coded Allergies: No Known Drug Allergies (Unverified , 07/08/18) Home Meds Active Scripts Promethazine Hcl (PROMETHAZINE HCL) 25 Mg Tablet, 25 MG PO Q8H PRN for HEADACHE, #20 TAB 0 Refills Prov:PRINCE JOSHI MD 07/08/18 Hydrocodone Bit/Acetaminophen (HYDROCODON-ACETAMINOPHEN 5-325) 1 Each Tablet, 1 EACH PO Q4H PRN for PAIN, #8 TAB 0 Refills Prov:PRINCE JOSHI MD 07/08/18 Prednisone (PREDNISONE) 20 Mg Tablet, 60 MG PO QDAY, #12 TAB 0 Refills Prov:PRINCE JOSHI MD 07/08/18 Reported Medications Metformin Hcl (METFORMIN HCL) 500 Mg Tablet, 2 TAB PO QDAY, TAB 07/08/18 [diamox] No Conflict Check, 500 MG PO BID 07/08/18 Discontinued Reported Medications Fluoxetine Hcl (PROZAC) 20 Mg Capsule, 20 MG PO QDAY, CAPSULE 03/07/18 Aspirin (ASPIRIN) 81 Mg Tab.chew, 81 MG PO QDAY, TAB.CHEW 01/28/18 Vits W-Ca,Fe,Fa(<1MG) ( VITAMINS) 1 Each Tablet, 1 EACH PO DAILY, TAB 01/28/18 Discontinued Scripts Tramadol Hcl (TRAMADOL HCL) 50 Mg Tablet, 50 MG PO Q6H PRN for PAIN, #6 TAB 0 Refills Prov:MONICA LEDEZMA S DO 03/07/18 Cyclobenzaprine Hcl (CYCLOBENZAPRINE HCL) 10 Mg Tablet, 10 MG PO Q8H PRN for MUSCLE SPASMS, #20 TAB 0 Refills Prov:MONICA LEDEZMA S DO 03/07/18 Reviewed Nurses Notes: Yes Old Medical Records Reviewed: Yes (HAVEN YBARRA MD) Hx Substance Use Disorder: Yes (MARIJUANA) Hx Alcohol Use: No (HAVEN YBARRA MD) Constitutional Vital Sign - Last 24 Hours 07/08/18 07/08/18 07/08/18 07/08/18 17:13 17:24 17:30 17:39 Temp 98.2 Pulse 74 72 Resp 14 B/P (MAP) 114/91 (99) 114/91 103/83 (90) Pulse Ox 96 96 07/08/18 07/08/18 07/08/18 07/08/18 18:00 18:09 18:39 18:53 Pulse 85 73 B/P (MAP) 107/69 (82) 121/76 (91) Pulse Ox 95 97 07/08/18 07/08/18 07/08/18 07/08/18 18:58 19:00 19:28 19:30 Pulse 78 84 B/P (MAP) 123/68 (86) 101/44 (63) Pulse Ox 96 96 07/08/18 07/08/18 07/08/18 19:35 19:50 20:05 Pulse 79 72 78 Pulse Ox 95 95 92 (PRINCE JOSHI MD) Physical Exam General Appearance: The patient is alert, has no immediate need for airway protection and no current signs of toxicity. Eyes: Pupils equal and round no injection. Respiratory: Chest is non tender, lungs are clear to auscultation. Cardiac: regular rate and rhythm Gastrointestinal: Abdomen is soft and non tender, no masses, bowel sounds normal. Neck: Neck is supple and non tender. Skin: No rashes or lesions. Neuro; gross strength and sensation in tact. DIFFERENTIAL DIAGNOSIS: After history and physical exam differential diagnosis was considered for headache including but not limited to subarachnoid hemorrhage, migraine headache, tension headache and infectious causes such as meningitis, pharyngitis and sinusitis. (HAVEN YBARRA MD) Medical Decision Making ED Course/Re-evaluation Clinical Indication for ER IV: IV Access ED Course I discussed this patient with Dr. Ybarra at shift change and assumed care. Patient received the Decadron, Regland, Benadryl and Toradol with only slight improvement in pain. She will be seeing her neurologist later this week. We gave a dose of Fentanyl 50mcg IV and home with further Phenergan. Prescription for a few Lortab as well, and follow-up as planned. Discussed that we do not typically use narcotic based pain medicines for chronic headache syndromes and she will discuss options with her neurologist for when she has headaches like this that are difficult to control. Decision to Disposition Date: Jul 08, 2018 Decision to Disposition Time: 20:12 (PRINCE JOSHI MD) Depart Departure Latest Vital Signs Vital Signs Date Time Temp Pulse Resp B/P (MAP) Pulse Ox O2 Delivery O2 Flow Rate FiO2 07/08/18 20:05 78 92 07/08/18 19:30 101/44 (63) 07/08/18 17:24 98.2 14 (PRINCE JOSHI MD) Impression: Primary Impression: Headache Condition: Improved Disposition: HOME OR SELF-CARE New Scripts Promethazine Hcl (PROMETHAZINE HCL) 25 Mg Tablet 25 MG PO Q8H PRN for HEADACHE, #20 TAB 0 Refills Prov: PRINCE JOSHI MD 07/08/18 Hydrocodone Bit/Acetaminophen (HYDROCODON-ACETAMINOPHEN 5-325) 1 Each Tablet 1 EACH PO Q4H PRN for PAIN, #8 TAB 0 Refills Prov: PRINCE JOSHI MD 07/08/18 Prednisone (PREDNISONE) 20 Mg Tablet 60 MG PO QDAY, #12 TAB 0 Refills Prov: PRINCE JOSHI MD 07/08/18 Patient Instructions: Acute Headache (ED) Additional Instructions: Call your neurologist tomorrow to let them know you were in the ER tonight and follow-up as planned or sooner if they determine that is needed. Keep taking your Diamox. Start Prednisone 20mg, 3 tablets once a day for 4 days. Take Phenergan 25mg, one every 8 hours as needed for headache or nausea. You can try taking Lortab 5/325, one every 4 hours as needed for pain. Problem Qualifiers Primary Impression: Headache Headache type: other complicated headache syndrome Qualified Codes: G44.59 - Other complicated headache syndrome HAVEN YBARRA MD Jul 08, 2018 16:59 PRINCE OJSHI MD Jul 08, 2018 18:51
[2018-07-08] MEDS ORDERED: diamox PO (17:23)
[2018-07-08] MEDS ORDERED: METF-450 PO (17:23)
[2018-07-08] MEDS ORDERED: diphenhydrAMINE 50 MG/ML VIAL IVP ONE ×2 (17:45→18:35)
[2018-07-08] MEDS ORDERED: NS(*) 0.9% 1000 ML BAG 1,000 ML IV ONE (17:45)
[2018-07-08] MEDS ORDERED: METOCLOPRAMIDE 10 MG/2 ML SDV IVP ONE (17:45)
[2018-07-08] MEDS ORDERED: DEXAMETHASONE INJ 100 MG/10 ML IVP ONE (17:45)
[2018-07-08] MEDS ORDERED: KETOROLAC 30 MG/ML VIAL IVP ONE (17:45)
[2018-07-08] MEDS ORDERED: DEXAMETHASONE SOD PHOS 10MG/ML IVP ONE (17:50)
[2018-07-08 19:30] VITALS: BP 101/44
[2018-07-08] MEDS ORDERED: fentaNYL CITR 100 MCG/2 ML AMP IVP ONE (20:10)
[2018-07-08] MEDS ORDERED: PRED20TA6 PO (20:15)
[2018-07-08] MEDS ORDERED: PROM-110 PO (20:15)
[2018-07-08] MEDS ORDERED: LOR5/325 PO (20:15)
[2018-07-08] MEDS ORDERED: PROMETHAZINE HCL 25 MG TAB TH 2 TAB/BOTTLE PO ONE (20:20)
== END 2018-07-08 20:24 | disposition home or self-care (01) ==
LOC: ER 17:22
DX: G44.59 Other complicated headache syndrome (principal)
CPT/HCPCS: 96361; 96374; 96375; 96376; 99284; J1100; J1200; J1885; J2765; J3010; J7030

== ENCOUNTER 2018-07-29 13:35 | Emergency (ER) | payer MEDICAID ==
[~2018-07-29 13:35] MED LIST changes: +LOR5/325 PO; +METF-450 PO; +PRED20TA6 PO; +diamox PO
--- NOTE | 2018-07-29 13:40 | ER Report ---
History and Physical Time Seen By MD: 13:40 HPI/ROS CHIEF COMPLAINT: Heavy vaginal bleeding since yesterday, migraine headache in the setting of pseudotumor cerebri HISTORY OF PRESENT ILLNESS: Patient is a 32-year-old female with the above comp laints. Patient reportedly took her Diamox, home headache medications without resolution of symptoms. Patient complains of photosensitivity, decreased appetite. Patient reports that she has been bleeding through 1 pad per hour since this morning. Patient is afebrile, hemodynamically stable at time of evaluation. REVIEW OF SYSTEMS: Constitutional: No fever, no chills. Eyes: No discharge. ENT: No sore throat. Cardiovascular: No chest pain, no palpitations. Respiratory: No cough, no shortness of breath. Gastrointestinal: No abdominal pain, no vomiting. Genitourinary: Heavy vaginal bleeding Musculoskeletal: No back pain. Skin: No rashes. Neurological: + Typical migraine headache distribution. Allergies: Coded Allergies: No Known Drug Allergies (Unverified , 07/08/18) Home Meds Active Scripts Promethazine Hcl (PROMETHAZINE HCL) 25 Mg Tablet, 25 MG PO Q8H PRN for HEADACHE, #20 TAB 0 Refills Prov:PRINCE JOSHI MD 07/08/18 Reported Medications Gabapentin (GABAPENTIN) 100 Mg Capsule, 500 MG PO BID, CAPSULE 07/29/18 [Diamox] No Conflict Check, 2000 MG PO DAILY 07/29/18 Metformin Hcl (METFORMIN HCL) 500 Mg Tablet, 2 TAB PO QDAY, TAB 07/08/18 Discontinued Reported Medications [diamox] No Conflict Check, 500 MG PO BID 07/08/18 Discontinued Scripts Hydrocodone Bit/Acetaminophen (HYDROCODON-ACETAMINOPHEN 5-325) 1 Each Tablet, 1 EACH PO Q4H PRN for PAIN, #8 TAB 0 Refills Prov:PRINCE JOSHI MD 07/08/18 Prednisone (PREDNISONE) 20 Mg Tablet, 60 MG PO QDAY, #12 TAB 0 Refills Prov:PRINCE JOSHI MD 07/08/18 Hx Substance Use Disorder: Yes (MARIJUANA) Hx Alcohol Use: No Constitutional Vital Sign - Last 24 Hours 07/29/18 07/29/18 07/29/18 07/29/18 13:47 14:00 14:30 15:00 Temp 98.8 Pulse 100 94 94 80 Resp 20 B/P (MAP) 144/92 140/94 (109) 119/78 (92) 114/94 (101) Pulse Ox 94 91 91 91 O2 Delivery Room Air Physical Exam General Appearance: The patient is alert, has no immediate need for airway protection and no signs of toxicity. Uncomfortable appearing, nontoxic Eyes: Pupils equal and round no pallor or injection. ENT, Mouth: Mucous membranes are moist. Respiratory: There are no retractions, lungs are clear to auscultation. Cardiovascular: Regular rate and rhythm. Gastrointestinal: Abdomen is soft and non tender, no masses, bowel sounds normal. Neurological: No focal neurological deficits on examination Skin: Warm and dry, no rashes. Musculoskeletal: Neck is supple non tender. Extremities are nontender, nonswollen and have full range of motion. DIFFERENTIAL DIAGNOSIS: After history and physical exam differential diagnosis was considered for vaginal bleeding including but not limited to ectopic , menses, miscarriage, and dysfunctional uterine bleeding, headache including but not limited to subarachnoid hemorrhage, migraine headache, tension headache and infectious causes such as meningitis, pharyngitis and sinusitis. Pseudotumor cerebri Medical Decision Making Data Points Result Diagram: 07/29/18 1402 07/29/18 1402 Laboratory Hematology Test 07/29/18 13:45 07/29/18 14:02 Urine Color Yellow Urine Clarity Cloudy Urine pH 7.0 pH (4.8-9.5) Urine Specific [place] 1.018 Urine Protein Negative mg/dL (NEGATIVE) Urine Glucose (UA) Negative mg/dL (NEGATIVE) Urine Ketones Negative mg/dL (NEGATIVE) Urine Blood Large (NEGATIVE) Urine Nitrite Negative (NEGATIVE) Urine Bilirubin Negative (NEGATIVE) Urine Urobilinogen Negative mg/dL (0.2-1.9) Urine Leukocyte Esterase Negative (NEGATIVE) Urine RBC 92 /HPF (0-2/HPF) Urine WBC None /HPF (0-5/HPF) Urine Squamous Epithelial Cells Many /LPF (</=FEW) Urine Amorphous Crystals Many /HPF Urine Bacteria Few /HPF (NONE-FEW) Urine Mucus None /HPF (NONE-FEW) Red Blood Count 5.46 M/uL (4.17-5.56) Mean Corpuscular Volume 79.9 fL (80.0-96.0) Mean Corpuscular Hemoglobin 26.7 pg (26.0-33.0) Mean Corpuscular Hemoglobin Concent 33.5 g/dL (32.0-36.0) Red Cell Distribution Width 14.4 % (11.5-14.5) Mean Platelet Volume 6.8 fL (7.2-11.1) Neutrophils (%) (Auto) 62.2 % (39.4-72.5) Lymphocytes (%) (Auto) 29.1 % (17.6-49.6) Monocytes (%) (Auto) 5.9 % (4.1-12.4) Eosinophils (%) (Auto) 2.4 % (0.4-6.7) Basophils (%) (Auto) 0.4 % (0.3-1.4) Nucleated RBC Relative Count (auto) 0.0 /100WBC Neutrophils # (Auto) 6.4 K/uL (2.0-7.4) Lymphocytes # (Auto) 3.0 K/uL (1.3-3.6) Monocytes # (Auto) 0.6 K/uL (0.3-1.0) Eosinophils # (Auto) 0.2 K/uL (0.0-0.5) Basophils # (Auto) 0.0 K/uL (0.0-0.1) Nucleated RBC Absolute Count (auto) 0.00 K/uL Prothrombin Time 13.0 seconds (12.0-14.4) Prothromb Time International Ratio 0.98 Activated Partial Thromboplast Time 29 seconds (23-35) Sodium Level 141 mmol/L (137-145) Potassium Level 3.5 mmol/L (3.5-5.0) Chloride Level 112 mmol/L (98-107) Carbon Dioxide Level 20 mmol/L (22-31) Blood Urea Nitrogen 13 mg/dl (7-18) Creatinine 0.80 mg/dl (0.52-1.04) Glomerular Filtration Rate Calc > 60.0 Random Glucose 99 mg/dl (75-110) Calcium Level 9.4 mg/dl (8.4-10.2) Total Bilirubin 0.2 mg/dl (0.2-1.3) Aspartate Amino Transf (AST/SGOT) 25 U/L (0-35) Alanine Aminotransferase (ALT/SGPT) 39 U/L (0-56) Alkaline Phosphatase 94 U/L (0-126) Total Protein 7.7 g/dl (6.3-8.2) Albumin 4.4 g/dl (3.5-5.0) Human Chorionic Gonadotropin, Quant < 2 mIU/ml Chemistry Test 07/29/18 13:45 07/29/18 14:02 Urine Color Yellow Urine Clarity Cloudy Urine pH 7.0 pH (4.8-9.5) Urine Specific [place] 1.018 Urine Protein Negative mg/dL (NEGATIVE) Urine Glucose (UA) Negative mg/dL (NEGATIVE) Urine Ketones Negative mg/dL (NEGATIVE) Urine Blood Large (NEGATIVE) Urine Nitrite Negative (NEGATIVE) Urine Bilirubin Negative (NEGATIVE) Urine Urobilinogen Negative mg/dL (0.2-1.9) Urine Leukocyte Esterase Negative (NEGATIVE) Urine RBC 92 /HPF (0-2/HPF) Urine WBC None /HPF (0-5/HPF) Urine Squamous Epithelial Cells Many /LPF (</=FEW) Urine Amorphous Crystals Many /HPF Urine Bacteria Few /HPF (NONE-FEW) Urine Mucus None /HPF (NONE-FEW) White Blood Count 10.2 k/uL (4.5-11.0) Red Blood Count 5.46 M/uL (4.17-5.56) Hemoglobin 14.6 g/dL (12.0-16.0) Hematocrit 43.6 % (34.0-47.0) Mean Corpuscular Volume 79.9 fL (80.0-96.0) Mean Corpuscular Hemoglobin 26.7 pg (26.0-33.0) Mean Corpuscular Hemoglobin Concent 33.5 g/dL (32.0-36.0) Red Cell Distribution Width 14.4 % (11.5-14.5) Platelet Count 385 K/uL (150-450) Mean Platelet Volume 6.8 fL (7.2-11.1) Neutrophils (%) (Auto) 62.2 % (39.4-72.5) Lymphocytes (%) (Auto) 29.1 % (17.6-49.6) Monocytes (%) (Auto) 5.9 % (4.1-12.4) Eosinophils (%) (Auto) 2.4 % (0.4-6.7) Basophils (%) (Auto) 0.4 % (0.3-1.4) Nucleated RBC Relative Count (auto) 0.0 /100WBC Neutrophils # (Auto) 6.4 K/uL (2.0-7.4) Lymphocytes # (Auto) 3.0 K/uL (1.3-3.6) Monocytes # (Auto) 0.6 K/uL (0.3-1.0) Eosinophils # (Auto) 0.2 K/uL (0.0-0.5) Basophils # (Auto) 0.0 K/uL (0.0-0.1) Nucleated RBC Absolute Count (auto) 0.00 K/uL Prothrombin Time 13.0 seconds (12.0-14.4) Prothromb Time International Ratio 0.98 Activated Partial Thromboplast Time 29 seconds (23-35) Glomerular Filtration Rate Calc > 60.0 Calcium Level 9.4 mg/dl (8.4-10.2) Total Bilirubin 0.2 mg/dl (0.2-1.3) Aspartate Amino Transf (AST/SGOT) 25 U/L (0-35) Alanine Aminotransferase (ALT/SGPT) 39 U/L (0-56) Alkaline Phosphatase 94 U/L (0-126) Total Protein 7.7 g/dl (6.3-8.2) Albumin 4.4 g/dl (3.5-5.0) Human Chorionic Gonadotropin, Quant < 2 mIU/ml Coagulation Test 07/29/18 14:02 Prothrombin Time 13.0 seconds Prothromb Time International Ratio 0.98 Activated Partial Thromboplast Time 29 seconds Urinalysis Test 07/29/18 13:45 Urine Color Yellow Urine Clarity Cloudy Urine pH 7.0 pH (4.8-9.5) Urine Specific [place] 1.018 Urine Protein Negative mg/dL (NEGATIVE) Urine Glucose (UA) Negative mg/dL (NEGATIVE) Urine Ketones Negative mg/dL (NEGATIVE) Urine Blood Large (NEGATIVE) Urine Nitrite Negative (NEGATIVE) Urine Bilirubin Negative (NEGATIVE) Urine Urobilinogen Negative mg/dL (0.2-1.9) Urine Leukocyte Esterase Negative (NEGATIVE) Urine RBC 92 /HPF (0-2/HPF) Urine WBC None /HPF (0-5/HPF) Urine Squamous Epithelial Cells Many /LPF (</=FEW) Urine Amorphous Crystals Many /HPF Urine Bacteria Few /HPF (NONE-FEW) Urine Mucus None /HPF (NONE-FEW) EKG/Imaging Imaging PATIENT NAME: Agnes Carballo : 1985 MR: [id number] V: [id number] EXAM DATE: ORDERING PHYSICIAN: MONICA LEDEZMA TECHNOLOGIST: Location: [facility] Patient: Agnes Carballo : 1985 Visit/Account:[id number] Date of Sevice: 07/29/2018 Transvaginal pelvic ultrasound INDICATION: Vaginal bleeding. COMPARISON: None Available FINDINGS: Uterus measures 7.4 x 3.8 x 5.7 cm. Anteverted and mildly heterogeneous. The anterior mid aspect does show a 2.3 x 1.7 x 2.3 cm hypoechoic nodule consistent fibroid. No other focal abnormality. Double wall endometrial stripe measures 5.4 mm and homogeneous. No fluid or focal abnormality. There is no free fluid in the cul-de-sac. Urinary bladder is empty. Pelvic vessels appear unremarkable on this examination. Right ovary measures 2.6 x 1.5 x 1.7 cm and shows normal blood flow and contains several small follicles. Left ovary measures 5.0 x 4.0 x 4.4 cm and shows normal blood flow and contains several small follicles. Left ovary contains a 4.7 x 4.3 x 3.9 cm complex cystic type lesion. No adnexal masses. IMPRESSION: 1. Endometrium is normal without focal abnormality. 2. Left ovary contains a 4.7 cm complex cystic type lesion. This is likely h emorrhagic cyst. However a follow-up ultrasound in 6 weeks can reevaluate for improvement or other etiologies. 3. Uterine fibroid. ED Course/Re-evaluation ED Course Patient is a 32-year-old female here with complaints of heavy vaginal bleeding with the start of her menses yesterday, reportedly bleeding through 1 pad per hour since this morning. Patient also complains of typical migraine headache distribution in the setting of pseudotumor cerebri. Patient reportedly took her Diamox at home without relief of symptoms. Patient was given a migraine cocktail, basic labs were ordered, patient was also ordered a transvaginal ultrasound. Transvaginal ultrasound identified a left-sided ovarian cyst though arterial and venous blood flow remained intact. Blood counts are found to be normal with a stable hemoglobin, hematocrit in spite of the patient's reports of significant vaginal bleeding. Urinalysis was not infectious, beta-hCG was negative. Patient was given migraine cocktail including normal saline bolus, Reglan, magnesium, Decadron, fentanyl, Toradol. Patient had significant relief of symptoms. Return precautions provided. Patient was stable at time of d ischarge. Close PCP follow-up recommended. Decision to Disposition Date: Jul 29, 2018 Decision to Disposition Time: 15:24 Depart Departure Latest Vital Signs Vital Signs Date Time Temp Pulse Resp B/P (MAP) Pulse Ox O2 Delivery O2 Flow Rate FiO2 07/29/18 15:00 80 114/94 (101) 91 07/29/18 13:47 98.8 20 Room Air Impression: Primary Impression: Headache Additional Impression: Menses, irregular Condition: Improved Disposition: HOME OR SELF-CARE Patient Instructions: Acute Headache (ED), Dysfunctional Uterine Bleeding (ED) Additional Instructions: Please follow-up with your family doctor in the next 24-48 hours. Please return immediately if you develop fevers, worsening pain, inability keep down food or fluids. Your blood counts today were found to be normal and stable compared to prior lab findings on record. Please keep all scheduled appointments. Please drink plenty of water to maintain hydration Problem Qualifiers MONICA LEDEZMA DO Jul 29, 2018 13:40
[2018-07-29] MEDS ORDERED: DIAMOX PO (13:51)
[2018-07-29] MEDS ORDERED: GABA-547 PO (13:52)
[2018-07-29] MEDS ORDERED: MAGNESIUM SUL* 2 GM/50 ML IVPB 50 ML IVPB ONE (13:55)
[2018-07-29] MEDS ORDERED: NS(*) 0.9% 1000 ML BAG 1,000 ML IV ONE (13:55)
[2018-07-29] MEDS ORDERED: METOCLOPRAMIDE 10 MG/2 ML SDV IVP ONE (13:55)
[2018-07-29] MEDS ORDERED: KETOROLAC 30 MG/ML VIAL IVP ONE (13:55)
[2018-07-29] MEDS ORDERED: diphenhydrAMINE 50 MG/ML VIAL IVP ONE (13:55)
[2018-07-29] MEDS ORDERED: DEXAMETHASONE SOD PHOS 10MG/ML IVP ONE (14:05)
[2018-07-29] MEDS ORDERED: fentaNYL CITR 100 MCG/2 ML AMP IVP ONE (14:05)
[2018-07-29 14:14] LABS: PLATELET COUNT, AUTOMATED 385 K/uL (150-450)
[2018-07-29 14:18] LABS: INR 0.98
--- NOTE | 2018-07-29 14:53 | RADIOLOGY IMAGING REPORT ---
FACILITY: [facility] PATIENT NAME: Agnes Carballo : 1985 MR: [id number] V: [id number] EXAM DATE: ORDERING PHYSICIAN: MONICA LEDEZMA TECHNOLOGIST: Location: [facility] Patient: Agnes Carballo : 1985 Visit/Account:[id number] Date of Sevice: 07/29/2018 Transvaginal pelvic ultrasound INDICATION: Vaginal bleeding. COMPARISON: None Available FINDINGS: Uterus measures 7.4 x 3.8 x 5.7 cm. Anteverted and mildly heterogeneous. The anterior mid aspect does show a 2.3 x 1.7 x 2.3 cm hypoechoic nodule consistent fibroid. No other focal abnormality. Double wall endometrial stripe measures 5.4 mm and homogeneous. No fluid or focal abnormality. There is no free fluid in the cul-de-sac. Urinary bladder is empty. Pelvic vessels appear unremarkable on this examination. Right ovary measures 2.6 x 1.5 x 1.7 cm and shows normal blood flow and contains several small follic les. Left ovary measures 5.0 x 4.0 x 4.4 cm and shows normal blood flow and contains several small follicl es. Left ovary contains a 4.7 x 4.3 x 3.9 cm complex cystic type lesion. No adnexal masses. IMPRESSION: 1. Endometrium is normal without focal abnormality. 2. Left ovary contains a 4.7 cm complex cystic type lesion. This is likely hemorrhagic cyst. However a follow-up ultrasound in 6 weeks can reevaluate for improvement or other etiologies. 3. Uterine fibroid. Report Dictated By: Elijah Hinojosa at 07/29/2018 2:46 PM Report E-Signed By: Elijah Hinojosa at 07/29/2018 2:50 PM WSN:[id number]
[2018-07-29 15:30] VITALS: BP 107/66
== END 2018-07-29 15:40 | disposition home or self-care (01) ==
LOC: ER 13:56
DX: R51 Headache (principal); N92.6 Irregular menstruation, unspecified; N83.202 Unspecified ovarian cyst, left side
CPT/HCPCS: 76830; 81001; 84702; 85025; 85610; 85730; 96365; 96375; 99284; J1100; J1200; J1885; J2765; J3010; J3475; J7030; 82040; 82247; 82310; 82374; 82435; 82565; 82947; 84075; 84132; 84155; 84295; 84450; 84460; 84520